=== PATIENT | male | born 1975 | race Asian ===

== ENCOUNTER → 2017-01-17 | Outpatient (CLI) | payer BC ==
[~2017-01-17] MED LIST: BUPIVACAINE MPF 0.25% 10 ML VIAL. ONE; LIDOCAINE 1% PF 30 ML VIAL. ONE; methylPREDNISolone ACETATE 40 MG/ML VIAL. ONE
== END | disposition home or self-care (01) ==
LOC: SURG 12:27
PROVIDERS: ATTEND Anesthesiology Pain Medicine
DX: M79.1 Myalgia (principal); E11.9 Type 2 diabetes mellitus without complications; M54.2 Cervicalgia; K21.9 Gastro-esophageal reflux disease without esophagitis
CPT/HCPCS: 20553; 82947; J1030; J2001; J3490

== ENCOUNTER 2018-02-27 23:59 | Emergency (ER) | payer BC ==
[~2018-02-27] VITALS: Ht 175.3 cm; Wt 72.6 kg
--- NOTE | 2018-02-28 00:14 | ED.ADGEN ---
Past History Past Medical History: Diabetes Adult General Chief Complaint Chief Complaint ".. I was fixing [place].. and I had a new knife... I cut my Lt. thumb .. knife it was not as sharp as knife I was used to using...... 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 No specific ill contacts. No history of recent travel. No hx of specific immunosuppression. . Pt. is right hand dominate. . Does not remember his last tetanus. Distal neurovascular intact or equal to other fingers. Laceration appears to be missing some tissue. Discussed courses of care. Patient requested sutures for possible earlier healing. Patient is concerned since he does develop keloids. Does have a history of diabetes but it is reportedly well controlled. Review of Systems Review of Systems Constitutional: Denies fever or chills [] Eyes: Denies change in visual acuity, redness, or eye pain [] HENT: Denies nasal congestion or sore throat [] Respiratory: Denies cough or shortness of breath [] Cardiovascular: No additional information not addressed in HPI [] GI: Denies abdominal pain, nausea, vomiting, bloody stools or diarrhea [] : Denies dysuria or hematuria [] Musculoskeletal: Denies back pain or joint pain [] Integument: Denies rash or skin lesions . Has[]complaints of laceration to distal left thumb Neurologic: Denies headache, focal weakness or sensory changes [] Endocrine: Denies polyuria or polydipsia [] All other systems were reviewed and found to be within normal limits, except as documented in this note. Family History Family History Noncontributory Current Medications Current Medications Current Medications Medications (Trade) Dose Ordered Sig/Miriam Start Time Stop Time Status Last Admin Dose Admin Bacitracin (Bacitracin Topical Pkt) 1 pkt STK-MED ONCE 02/28/18 00:40 02/28/18 00:41 DC Diphtheria/ Tetanus/Acell Pertussis (Boostrix) 0.5 ml ONCE ONCE 02/28/18 01:00 02/28/18 01:01 DC 02/28/18 00:32 0.5 ML Lidocaine HCl 20 ml 1X ONCE 02/28/18 01:00 02/28/18 01:01 DC 02/28/18 00:32 20 ML Neomycin/ Polymyxin/ Bacitracin (Triple Antibiotic Ointment) 1 pkt 1X ONCE 02/28/18 01:00 02/28/18 01:01 DC 02/28/18 00:50 1 PKT Allergies Allergies Allergies Coded Allergies Type Severity Reaction Last Updated Verified No Known Drug Allergies 02/28/18 No Physical Exam Physical Exam Constitutional: Well developed, well nourished, mild acute distress, non-toxic appearance. [] HENT: Normocephalic, atraumatic, bilateral external ears normal, oropharynx moist, no oral exudates, nose normal. [] Eyes: PERRLA, EOMI, conjunctiva normal, no discharge. [] Neck: Normal range of motion, no tenderness, supple, no stridor. [] Cardiovascular:Heart rate regular rhythm, no murmur [] Lungs & Thorax: Bilateral breath sounds equal at apex on auscultation [] Abdomen: Bowel sounds normal, soft, no tenderness, no masses, no pulsatile masses. [] Skin: Warm, dry, no erythema, no rash. [] Some Keloids noted. Back: No tenderness, no CVA tenderness. [] Extremities: No tenderness, no cyanosis, no clubbing, ROM intact, no edema. [] Laceration tip of Lt. thumb as per HPI. Neurologic: Alert and oriented X 3, normal motor function, normal sensory function, no focal deficits noted. [] Psychologic: Affect anxious, judgement normal, mood normal. [] Current Patient Data Vital Signs Vital Signs Date Time Temp Pulse Resp B/P (MAP) Pulse Ox O2 Delivery O2 Flow Rate FiO2 02/28/18 00:22 98.2 73 18 98 Room Air EKG EKG [] Radiology/Procedures Radiology/Procedures [] Course & Med Decision Making Course & Med Decision Making Pertinent Labs and Imaging studies reviewed. (See chart for details). Suture note- : Lt. Thumb or l finger #1, hand and laceration cleaned with Betadine. Injected lidocaine 2 % at laceration site. Nail edge cleaned with sharp scissors point. Irrigated laceration with normal saline. Suture on sterile glove wrap. (Did not use blue suture towels because of marked increase of lint fragments.) Closed laceration with 4-0 Vicryl 3. Polysporin applied and bulk dressing. Patient keep wound clean and dry. Apply Polysporin 4 times a day until healed. Band-Aid after initial dressing removed. Finger cots over band aide can be used if typing. Allow rest of finger until adequate healing. Allow two days to allow formation of good clot/healing scab at laceration site. Keep laceration covered until sutures dissolve. Keep clean and dry except for antibiotic ointment 4 x day . Return if any concerns. Take Tylenol or Ibuprofen as needed for discomfort. Return if any concerns. Risk of Keloid formation discussed. Pt. is aware of decreased healing and infection risks with diabetes. Must monitor site closely. [] Final Impression Final Impression 1. Laceration distal Lt Thumb 2. Hx. of DM[] Dragon Disclaimer Dragon Disclaimer This electronic medical record was generated, in whole or in part, using a voice recognition dictation system. ESTELLA FISHER MD Feb 28, 2018 00:13
[2018-02-28 00:22] VITALS: BP 126/93
[2018-02-28] MEDS: LIDOCAINE 2% 20 ML VIAL. IJ ONE (00:32)
[2018-02-28] MEDS: DIPHTH,PERTUSS(ACELL),TET TOX 0.5 ML DISP.SYRIN. VAX IM ONE (00:32)
[2018-02-28] MEDS ORDERED: BACITRACIN ZINC TOPICAL OINT PACKET. TP ONE (00:40)
[2018-02-28] MEDS ORDERED: NEOMY/BACITR/POLYMYXIN OINT PACKET. TP ONE (00:40)
[2018-02-28] MEDS: NEOMY/BACITR/POLYMYXIN OINT PACKET. TP ONE (00:50)
== END 2018-02-28 01:23 | disposition home or self-care (01) ==
LOC: ER 23:59
DX: S61.012A Laceration without foreign body of left thumb without damage to nail, initial encounter (principal); E11.9 Type 2 diabetes mellitus without complications; W26.0XXA Contact with knife, initial encounter; Y93.89 Activity, other specified; Y92.89 Other specified places as the place of occurrence of the external cause; Y99.8 Other external cause status
CPT/HCPCS: 12001; 90471; 90715; 99283-25; J2001

== ENCOUNTER → 2019-11-06 | Outpatient (CLI) | payer BC | END | disposition home or self-care (01) | LOC: LAB 15:52 | PROVIDERS: ATTEND Internal Medicine Gastroenterology | DX: K85.90 Acute pancreatitis without necrosis or infection, unspecified (principal) | CPT/HCPCS: 82784; 82787 ==

== ENCOUNTER → 2020-06-25 | Outpatient (CLI) | payer BC ==
--- NOTE | 2020-06-25 10:04 | RAD ---
Right ankle 3 views. HISTORY: Injury, pain 3 views were taken of the right ankle. There is not evidence of an acute fracture. There is a sesamoi d or an old injury at the tip of the medial malleolus. There is soft tissue swelling mainly laterally . IMPRESSION: 1. Soft tissue swelling. 2. No acute fracture. Electronically signed by: Neil Oliveira MD (06/25/2020 10:02 AM) [id number]
== END ==
LOC: DXRAD 09:25
PROVIDERS: ATTEND Nurse Practitioner Family
DX: M79.89 Other specified soft tissue disorders (principal); M25.571 Pain in right ankle and joints of right foot
CPT/HCPCS: 73610

== ENCOUNTER 2020-10-05 19:21 | Emergency (ER) | payer BC | END 2020-10-05 19:25 | disposition left against medical advice (07) | LOC: ER 19:21 | DX: R51.9 Headache, unspecified (principal); Z53.21 Procedure and treatment not carried out due to patient leaving prior to being seen by health care provider ==